=== PATIENT | male | born 1990 | race Two or more races ===

== ENCOUNTER 2021-11-14 03:32 | Emergency (ER) | payer SELFPAY ==
[2021-11-14] MEDS ORDERED: MAGNESIUM SULF 50% (8.12 MEQ/2 ML-1 GM VIAL) IVPB ONE (03:42)
[2021-11-14] MEDS ORDERED: POTASSIUM CHLORIDE TABS 20 MEQ TABLET.ER (FP) PO ONE (03:42)
[2021-11-14 03:44] VITALS: BP 108/84; PULSE 92; TEMP 98.9; BMI 28.0
[2021-11-14] MEDS ORDERED: KETOROLAC TROMETHAMINE 15 MG/ML VIAL IM ONE (03:52)
[2021-11-14] MEDS ORDERED: KETOROLAC TROMETHAMINE 15 MG/ML VIAL ONE (03:59)
[2021-11-14 04:56] LABS: THROAT:GRP A STREP NOT DETECTED (NOTDETECTED)
[2021-11-14 05:34] LABS: SARS COV-2 MOLECULAR NEGATIVE (NEGATIVE)
== END 2021-11-14 04:17 | disposition home or self-care (01) ==
LOC: JER 03:32
PROC: 3E023GC Introduction of Other Therapeutic Substance into Muscle, Percutaneous Approach (ICD-10-PCS; principal; 2021-11-14)
DX: R07.0 Pain in throat (principal)
CPT/HCPCS: 87651; 99284-25; C9803; U0003; U0005